=== PATIENT | male | born 1960 | race Caucasian/White ===

== ENCOUNTER 2019-10-11 03:24 | Emergency (ER) | payer SELFPAY ==
[2019-10-11] VITALS (23 sets, daily range): BP systolic 108–137; BP diastolic 65–90; PULSE 16–84; RESP 12–70; TEMP 34.6–36.4; O2SAT 82–100; BMI 26.5
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
--- NOTE | 2019-10-11 03:28 | XR_ITS ---
WS: [id number] XR chest 1V portable [id number] REASON FOR EXAM: cough FINDINGS: Mild congestion in both lung do are seen suggesting low-grade inflammatory changes. The heart mediastinum were normal. The hilum and apices are normal. XR/XR chest 1V portable [id number] IMPRESSION: Increased markings both lung do suggesting bronchitis.
[2019-10-11] MEDS: sodium chloride 0.9% 1,000 ML 999 ML IV ×2 (03:42→03:45)
[2019-10-11 03:50] LABS: Basophils % 0.4 %; Eosinophils # 0.1 10^3/uL (0.0-0.8); Eosinophils % 0.5 %; Hematocrit 47.2 % (42.0-52.0); Hemoglobin 15.2 g/dL (11.7-16.6); Lymphocytes # 1.4 10^3/uL (0.8-4.8); Lymphocytes % 14.8 %; Mean Corpuscular HGB Conc 32.2 g/dL (30.0-36.0); Mean Corpuscular Hemoglobin 28.4 pg (28.0-34.0); Mean Corpuscular Volume 88.2 fL (80-94); Mean Platelet Volume 8.3 fL (7.4-10.4); Monocytes # 0.5 10^3/uL (0.2-0.9); Monocytes % 4.7 %; Neutrophils # 7.7 10^3/uL (1.8-7.7); Neutrophils % 79.3 %; Nucleated Red Blood Cells % 0 %; Platelet Count 318 10^3/cmm (130-400); Red Blood Count 5.35 10^6/uL (4.1-5.3); Red Cell Distribution Width 12.4 % (12.1-15.1); White Blood Count 9.7 10^3/uL (4.0-10.0)
[2019-10-11 04:03] LABS: INR 1.04 (0.8-1.2)
[2019-10-11 04:08] LABS: Alanine Aminotransferase 30 U/L (0-41); Albumin Level 4.6 g/dL (3.5-5.2); Alcohol Level 286 mg/dL (0-10); Alkaline Phosphatase 69 IU/L (40-130); Anion Gap 14.2 (5-19); Aspartate Amino Transferase 37 U/L (0-40); Blood Urea Nitrogen 13 mg/dL (6-20); Calcium 9.9 mg/dL (8.5-10.5); Carbon Dioxide 26 mmol/L (22-29); Chloride 101 mmol/L (98-107); Globulin 3.1 g/dL (1.3-4.6); Glucose 123 mg/dL (65-115); Lipase 55 U/L (13-60); Magnesium 2.6 mg/dL (1.7-2.3); Osmolality Calculated 282 mOsm/kg (285-295); Potassium 4.2 mmol/L (3.5-5.1); Sodium 137 mmol/L (136-145); Total Bilirubin 0.4 mg/dL (0.15-1.2); Total Protein 7.7 g/dL (6.6-8.7)
[2019-10-11 04:11] LABS: Creatine Phosphokinase 437 U/L (39-308); Troponin(5th) Baseline 6 ng/mL (0-15)
[2019-10-11] MEDS: sodium chloride 0.9% 1,000 ML 150 ML IV (05:02)
--- NOTE | 2019-10-11 05:21 | PC.NURSE ---
Pt placed on 2L O2 due to declining sats.
[2019-10-11 06:24] LABS: Bilirubin Urine Neg (NEGATIVE); Blood Urine Neg (Negative); Glucose Urine UA Norm (Normal); Ketones Urine Negative (Negative); Leukocyte Esterase Urine Negative (Negative); Nitrate Urine Negative (Negative); Protein Urine Neg (Negative); Specific Gravity, Urine 1.005 (1.005-1.030); Urine Appearance Clear (CLEAR); Urine Color Straw (Yellow); Urobilinogen Urine Norm (Negative); pH Urine 5 (5-7)
[2019-10-11 06:26] LABS: Amphetamines Screen Urine Negative (Negative); Barbiturates Screen Urine Negative (Negative); Benzodiazepines Screen Urine Negative (Negative); Cocaine Screen Urine Negative (Negative); Opiate Screen Urine Negative (Negative); PCP Screen Urine Negative (Negative); THC Screen Urine Negative (Negative)
[2019-10-11 06:27] LABS: Add Urine Culture? No
[2019-10-11 06:29] LABS: Troponin 5 2HR 6.24 ng/mL (0-15); Troponin 5 2HR Delta 0.24 ABS# (0-10)
--- NOTE | 2019-10-11 09:32 | ECG_ITS ---
Measurements Intervals [address] Rate: 71 P: 54 NM: 141 QRS: 58 QRSD: 105 T: 12 QT: 391 QTc: 427 SINUS RHYTHM INCOMPLETE RIGHT BUNDLE BRANCH BLOCK [90+ ms QRS DURATION, TERMINAL R IN V1/V2, 40+ ms S IN I/aVL/V4/V5/V6] No previous ECG available for comparison Electronically Signed On 10-11-2019 9:12:28 CDT by Wilner Nash [email or web address]
[2019-10-11 09:36] LABS: Troponin 5 6HR Delta 0 ng/L (0-12)
== END 2019-10-11 11:56 | disposition home or self-care (01) ==
PROVIDERS: Emergency Provider Emergency Medicine
DX: R41.82 Altered mental status, unspecified (principal); R68.83 Chills (without fever); R40.2412 Glasgow coma scale score 13-15, at arrival to emergency department
CPT/HCPCS: 12345; 70450; 71045; 72125; 80053; 80306; 80307; 81001; 82550; 83690; 83735; 84484; 85025; 85610; 93005; 93010; 96360; 96361; 99284; J7030

== ENCOUNTER 2019-10-25 09:58 | Emergency (ER) | payer SELFPAY ==
[2019-10-25 09:59] VITALS: BP 125/86; PULSE 102; RESP 16; TEMP 37; O2SAT 99; BMI 25.8
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
[2019-10-25 10:07] VITALS: BP 125/86; PULSE 102; RESP 16; O2SAT 100
[2019-10-25 10:20] VITALS: RESP 16
[2019-10-25] MEDS: ondansetron 4 MG Tablet PO (10:20)
[2019-10-25] MEDS: morphine 4 mg/mL SDV 1 mL 10 MG IM (10:20)
[2019-10-25] MEDS: tetanus-dipt-pertussis 0.5 mL SDV IM (10:21)
[2019-10-25] MEDS: bacitracin ointment Pkt 1 EACH TOPICAL (10:32)
[2019-10-25 10:48] VITALS: BP 135/81; PULSE 97; RESP 16; O2SAT 100
--- NOTE | 2019-10-27 12:14 | DCPLANNER ---
manager of administration had message to speak with patient about getting established with a primary care physician. manager of administration spoke with patient about getting established with a primary care physician, patient stated that he does not have any insurance at this time. manager of administration got a good address for patient and mailed both of the financial foundations associate applications to patient so that he could fill them out and turn them back in. Patient stated that he wanted to hold off on scheduling a follow up appointment at this time, he wanted to fill out financial paperwork and turn it in and see if he qualifies for financial foundations associate before scheduling an appointment.
== END 2019-10-25 11:32 | disposition home or self-care (01) ==
LOC: ER 10:28
PROVIDERS: Emergency Provider Nurse Practitioner Family
DX: T23.202A Burn of second degree of left hand, unspecified site, initial encounter (principal); T23.201A Burn of second degree of right hand, unspecified site, initial encounter; X00.8XXA Other exposure to uncontrolled fire in building or structure, initial encounter
CPT/HCPCS: 12345; 90471; 90715; 96372; 99281; 99283; J2270; Q0162

== ENCOUNTER 2019-11-17 08:26 | Outpatient (RCR) | payer SELFPAY | END 2019-11-19 23:59 | disposition home or self-care (01) | LOC: WOUND 08:26 | PROVIDERS: Visit Provider Thoracic Surgery (Cardiothoracic Vascular Surgery) | DX: T23.262A Burn of second degree of back of left hand, initial encounter (principal); T23.261A Burn of second degree of back of right hand, initial encounter; X08.8XXA Exposure to other specified smoke, fire and flames, initial encounter | CPT/HCPCS: 11042; 97597; 97598; 99203; G0463; L3908 ==

== ENCOUNTER 2019-11-24 08:18 | Outpatient (CLI) | payer SELFPAY | END 2019-11-24 08:19 | disposition home or self-care (01) | LOC: WOUND 08:18 | PROVIDERS: Visit Provider Thoracic Surgery (Cardiothoracic Vascular Surgery) | DX: Z09 Encounter for follow-up examination after completed treatment for conditions other than malignant neoplasm (principal) | CPT/HCPCS: 99212 ==